=== PATIENT | female | born 1960 | race Caucasian/White ===

== ENCOUNTER 2016-07-12 18:58 | Emergency (ER) | payer OTHER ==
--- NOTE | 2016-07-12 19:20 | ER Document Report ---
ED Medical Screen (RME) - General Stated Complaint: ABDOMINAL PAIN Notes: 55 yo female c/o acute onset lower abdominal pain. pt had colonoscopy done today by Dr Dolan in his office. no vomiting. no fever. + hx/o colitis and bowel spasms TRAVEL OUTSIDE OF THE [place] IN LAST 30 DAYS: No - Related Data Allergies/Adverse Reactions: No Known Allergies Allergy (Unverified 06/01/11 10:56) Past Medical History Neurological Medical History: Reports: Hx Migraine Past Surgical History: Reports: Hx Appendectomy, Hx Orthopedic Surgery - right foot, Hx Tonsillectomy, Hx Tubal Ligation. Denies: Hx Pacemaker - Immunizations Hx Diphtheria, Pertussis, Tetanus Vaccination: Yes
[2016-07-12 19:54] LABS: ABSOLUTE BASOPHILS # (AUTO) 0.1 10^3/uL (0.0-0.2); ABSOLUTE EOSINOPHILS # (AUTO) 0.3 10^3/uL (0.0-0.6); ABSOLUTE LYMPHOCYTES (AUTO) 2.2 10^3/uL (0.5-4.7); ABSOLUTE MONOCYTES (AUTO) 0.5 10^3/uL (0.1-1.4); ABSOLUTE NEUT (AUTO) 3.6 10^3/uL (1.7-8.2); EOSINOPHILS % (AUTO) 4.2 % (0-6); HEMATOCRIT 46.5 % (36.0-47.0); HEMOGLOBIN 14.7 g/dL (12.0-15.5); HGB HCT DIFFERENCE -2.4; LYMPHOCYTES % (AUTO) 33.1 % (13-45); MEAN CORPUSCULAR HEMOGLOBIN 28.9 pg (27.0-33.4); MEAN CORPUSCULAR HGB CONC 31.6 g/dL (32.0-36.0); MEAN CORPUSCULAR VOLUME 91 fl (80-97); MONOCYTES % (AUTO) 6.8 % (3-13); RED BLOOD COUNT 5.09 10^6/uL (3.72-5.28); RED CELL DISTRIBUTION WIDTH 14.3 % (11.5-14.0); SEGMENTED NEUTROPHILS % (AUTO) 54.9 % (42-78); WHITE BLOOD COUNT 6.6 10^3/uL (4.0-10.5)
[2016-07-12 20:09] LABS: ALANINE AMINOTRANSFERASE 20 U/L (9-52); ALBUMIN 4.5 g/dL (3.5-5.0); ALKALINE PHOSPHATASE 57 U/L (38-126); ANION GAP 9 (5-19); ASPARTATE AMINO TRANSFERASE 33 U/L (14-36); BLOOD UREA NITROGEN 11 mg/dL (7-20); CALCIUM 9.7 mg/dL (8.4-10.2); CARBON DIOXIDE 29 mmol/L (22-30); CHLORIDE 103 mmol/L (98-107); CREATININE RESULT 0.66 mg/dL (0.52-1.25); GLUCOSE 79 mg/dL (75-110); LIPASE 60.1 U/L (23-300); POTASSIUM 3.8 mmol/L (3.6-5.0); SODIUM 141.2 mmol/L (137-145); TOTAL PROTEIN 8.2 g/dL (6.3-8.2)
--- NOTE | 2016-07-12 20:15 | ER Document Report ---
ED GI/ - General Mode of Arrival: Ambulatory Information source: Patient, Relative - Partner TRAVEL OUTSIDE OF THE [place] IN LAST 30 DAYS: No - HPI Patient complains to provider of: Abdominal pain Onset: This afternoon Timing/Duration: Sudden, Persistent Location: LLQ, RLQ, Suprapubic Exacerbated by: Walking <CRISTIAN SINGH - Last Filed: 07/12/16 23:19> <KOBE CHAVARRIA - Last Filed: 07/13/16 00:17> <ALLYSSA GUNN - Last Filed: 07/13/16 02:25> - General Chief Complaint: Abdominal Pain Stated Complaint: ABDOMINAL PAIN Notes: Patient is a 55-year-old female with history of ulcerative colitis presenting to the emergency department after having a colonoscopy today with with complaints of severe lower abdominal pain. Patient states it feels like the pain stems from her lower intestine. Patient's partner states that today during her colonoscopy later moved to follow-ups and told her that she had diverticulitis, but she was not prescribed any medication. Patient denies eating any Nusser seeds, and also states that she has never been given any guidance on a proper diet for ulcerative colitis. Patient received this colonoscopy due to frequent abdominal pain and sudden rapid weight loss. ( CRISTIAN SINGH) - Related Data Allergies/Adverse Reactions: No Known Allergies Allergy (Verified 07/12/16 19:32) Past Medical History - General Information source: Patient, Relative - Social History Smoking Status: Current Every Day Smoker Chew tobacco use (# tins/day): No Frequency of alcohol use: None Drug Abuse: None Family History: Reviewed & Not Pertinent Patient has suicidal ideation: No Patient has homicidal ideation: No Neurological Medical History: Reports: Hx Migraine Renal/ Medical History: Denies: Hx Peritoneal Dialysis GI Medical History: Reports: Hx Ulcerative Colitis, Hx Colonoscopy - 07/12/2016 Past Surgical History: Reports: Hx Appendectomy, Hx Orthopedic Surgery - right foot, Hx Tonsillectomy, Hx Tubal Ligation. Denies: Hx Pacemaker - Immunizations Hx Diphtheria, Pertussis, Tetanus Vaccination: Yes <CRISTIAN SINGH - Last Filed: 07/12/16 23:19> Review of Systems - Review of Systems Constitutional: No symptoms reported EENT: No symptoms reported Cardiovascular: No symptoms reported Respiratory: No symptoms reported Gastrointestinal: See HPI, Abdominal pain - Severe lower abdominal pain. Genitourinary: No symptoms reported Female Genitourinary: No symptoms reported Musculoskeletal: No symptoms reported Skin: No symptoms reported Hematologic/Lymphatic: No symptoms reported Neurological/Psychological: No symptoms reported -: Yes All other systems reviewed and negative <REINIER SINGHICA - Last Filed: 07/12/16 23:19> Physical Exam - General General appearance: Alert, Other - Appears uncomfortable - HEENT Head: Normocephalic, Atraumatic Eyes: Normal Pupils: PERRL - Respiratory Respiratory status: No respiratory distress Chest status: Nontender Breath sounds: Normal Chest palpation: Normal - Cardiovascular Rhythm: Regular Heart sounds: Normal auscultation Murmur: No - Abdominal Bowel sounds: Normal Tenderness: Tender - No pain in RUQ, Epigastric, LUQ. Tenderness to RLQ, suprapubic, LLQ with guarding. No rebounding or rigidity., Guarding. No: Rebound - Back Back: Normal, Nontender - Extremities General upper extremity: Normal inspection General lower extremity: Normal inspection - Neurological Neuro grossly intact: Yes Cognition: Normal Latonya Coma Scale Eye Opening: Spontaneous Latonya Coma Scale Verbal: Oriented Latonya Coma Scale Motor: Obeys Commands Latonya Coma Scale Total: 15 Speech: Normal - Psychological Associated symptoms: Normal affect, Normal mood - Skin Skin Temperature: Warm Skin Moisture: Dry Skin Color: Normal <REINIER SINGHICA - Last Filed: 07/12/16 23:19> Course - Laboratory Result Diagrams: 07/12/16 19:40 07/12/16 19:40 <MALATHI SINGHSSICA - Last Filed: 07/12/16 23:19> - Laboratory Result Diagrams: 07/12/16 19:40 07/12/16 19:40 <KOBE CHAVARRIA - Last Filed: 07/13/16 00:17> - Laboratory Result Diagrams: 07/12/16 19:40 07/12/16 19:40 <ALLYSSA GUNN - Last Filed: 07/13/16 02:25> - Re-evaluation Re-evalutation: 07/12/16 22:04 I personally performed the services described in the documentation, reviewed and edited the documentation which was dictated to my scribe in my presence, and it accurately records my words and actions. Patient presents emergency Department with acute lower abdominal pain. Patient had a colonoscopy done at Dr. short this morning. 07/12/16 23:52 Patient presents to the emergency department the chief complaint of lower abdominal pain patient states she was in the GI doctor's office today and had a colonoscopy done. She states about 2 hours prior to arrival she started having severe lower abdominal pain. She has a history of colitis but is never had pain like this is a history of appendectomy. She states that the GI doctor told her that she had some polyps which were removed no tumors or cancer. There is no record in the system I attempted to call the GI doctor multiple times with no response I attempted to call his partner multiple times with no response. Pending physician is Dr. MICHAEL VILLEDA. Patient underwent acute abdominal series which was negative and then a CT of the abdomen and pelvis with IV contrast read by the radiologist as if concerned about perforation surgical consultation but they don't see any free air psych consult to Dr. rivas who read the CAT scan and said he doesn't see any free air but didn't oral and rectal contrast. Patient has been updated informed of such severe abdominal examinations pain is controlled fentanyl no peritoneal signs rebound rigidity. 07/12/16 23:58 Call the extrusion technician to order oral and rectal contrast per surgery. Spoke with Dr. Gunn was given a follow-up on the CT scan with the surgeon. (KOBE CHAVARRIA) 07/13/16 02:[address] scan was negative. I did reevaluate the patient and she is feeling improved. I did re-palpate her abdomen. Her abdomen is soft. Still has some tenderness over the left lower quadrant but it is not severe. I informed her that she is followed closely with her GI physician. I encourage her return to ER if she has worsening pain, fevers, or vomiting. Patient agrees with plan and will be discharged home. Dictation of this chart was performed using voice recognition software; therefore, there may be some unintended grammatical errors. (ALLYSSA GUNN) - Vital Signs Vital signs: Temp Pulse Resp BP Pulse Ox 97.4 F 73 17 134/75 H 100 07/12/16 19:19 07/12/16 19:19 07/12/16 20:00 07/12/16 19:19 07/12/16 19:19 (CRISTIAN SINGH) (KOBE CHAVARRIA) (ALLYSSA GUNN) - Laboratory Laboratory results interpreted by me: 07/12/16 19:40 MCHC 31.6 L RDW 14.3 H (CRISTIAN SINGH) (KOBE CHAVARRIA) (ALLYSSA GUNN) - EKG Interpretation by Me Additional EKG results interpreted by me: 07/13/16 00:17 EKG interpreted by myself to reveal sinus rhythm at [address]-T wave changes no acute ST segment elevation or depression (KOBE CHAVARRIA) Discharge <CRISTIAN SINGH - Last Filed: 07/12/16 23:19> <KOBE CHAVARRIA - Last Filed: 07/13/16 00:17> <ALLYSSA GUNN - Last Filed: 07/13/16 02:25> - Discharge Clinical Impression: Abdominal pain Qualifiers: Abdominal location: unspecified location Qualified Code(s): R10.9 - Unspecified abdominal pain Condition: Stable Disposition: HOME, SELF-CARE Instructions: Abdominal Pain ([facility]) Referrals: PREETI STRONG MD [Primary Care Provider] - Follow up as needed SHAY OROURKE MD [NO LOCAL MD] - Follow up tomorrow (Return to the emergency department sooner for increasing worsening or new symptoms) Scribe Documentation - Scribe Written by Scribe:: Cristian Singh 07/12/20162014 acting as scribe for :: Micah <CRISTIAN SINGH - Last Filed: 07/12/16 23:19>
[2016-07-12] MEDS ORDERED: FENTANYL CITRATE INJ/PF 100 MCG/2 ML AMPUL ONE (20:20)
[2016-07-12] MEDS ORDERED: FENTANYL CITRATE INJ/PF 100 MCG/2 ML AMPUL IV ONE ×2 (20:20→23:17)
[2016-07-12] MEDS ORDERED: ONDANSETRON HCL INJ/PF 4 MG/2 ML SDV ONE (20:21)
--- NOTE | 2016-07-12 21:46 | EKG REPORT ---
SEVERITY:- ABNORMAL ECG - SINUS RHYTHM NONSPECIFIC T ABNORMALITIES, ANT-LAT LEADS : Confirmed by: Shayy Corey MD 12-Jul-2016 21:44:56
[2016-07-13 02:48] VITALS: BP 113/70
== END 2016-07-13 02:40 | disposition home or self-care (01) ==
LOC: ER 18:58
DX: R10.30 Lower abdominal pain, unspecified (principal); Z98.890 Other specified postprocedural states; R63.4 Abnormal weight loss; Z68.26 Body mass index [BMI] 26.0-26.9, adult; F17.200 Nicotine dependence, unspecified, uncomplicated; Z90.49 Acquired absence of other specified parts of digestive tract; Z87.19 Personal history of other diseases of the digestive system
CPT/HCPCS: 93005; 99285; 96374; 96375; 36415; 83690; 85025; 80053; 74022; 74176; 74177; 93010; J3010; J2405

== ENCOUNTER → 2016-09-29 | Outpatient (CLI) | payer OTHER ==
[2016-09-29 10:15] LABS: CHOLESTEROL 183.67 mg/dL (0-200); Direct HDL 59 mg/dL (>40); TRIGLYCERIDES 70 mg/dL (<150)
[2016-09-29 10:27] LABS: DIRECT LDL 99 mg/dL (<100)
== END ==
LOC: LAB 09:29
PROVIDERS: ATTEND Family Medicine
DX: E03.9 Hypothyroidism, unspecified (principal); Z79.899 Other long term (current) drug therapy
CPT/HCPCS: 36415; 80061; 83036; 84443

== ENCOUNTER → 2016-10-20 | Outpatient (CLI) | payer OTHER | LOC: WI 12:43 | PROVIDERS: ATTEND Family Medicine | DX: Z12.31 Encounter for screening mammogram for malignant neoplasm of breast (principal) | CPT/HCPCS: 77067; G0202 ==

== ENCOUNTER → 2016-12-12 | Outpatient (CLI) | payer OTHER | LOC: LAB 09:37 | PROVIDERS: ATTEND Family Medicine | DX: E03.9 Hypothyroidism, unspecified (principal) | CPT/HCPCS: 36415; 84436; 84443 ==

== ENCOUNTER → 2017-10-25 | Outpatient (CLI) | payer OTHER ==
--- NOTE | 2017-10-25 14:07 | WOMENS IMAGING REPORT ---
EXAM DESCRIPTION: BILAT SCREENING MAMMO W/CAD COMPLETED DATE/TIME: 10/25/2017 1:48 pm REASON FOR STUDY: SCREENING MAMMO Z12.31 ENCNTR SCREEN MAMMOGRAM FOR MALIGNANT NEOPLASM OF MARIE COMPARISON: 2016 TECHNIQUE: Standard craniocaudal and mediolateral oblique views of each breast recorded using digita l acquisition. LIMITATIONS: None. FINDINGS: No masses, calcifications or architectural distortion. No areas of suspicion. Read with the assistance of CAD. .[facility] - R2 Cenova Version 1.3 .[facility] - R2 Cenova Version 1.3 .[facility] - R2 Cenova Version 2.4 .[facility] - R2 Cenova Version 2.4 .[facility] - R2 Broth Mixer Version 9.2 IMPRESSION: NORMAL MAMMOGRAM. BIRADS 1. BREAST DENSITY: d. The breasts are extremely dense, which lowers the sensitivity of mammography. BIRAD: 1 NEGATIVE RECOMMENDATION: ROUTINE SCREENING COMMENT: The patient has been notified of the results by letter per SA requirements. Additional no tification policies are in place for contacting patient with suspicious or incomplete findings. Quality ID #[id number]: The [employer] recommends an annual screening mammogram for women aged 40 years or over. This facility utilizes a reminder system to ensure that all patients receive reminder letters, and/or direct phone calls for appointments. This includes reminders for routine scr eening mammograms, diagnostic mammograms, or other Breast Imaging Interventions when appropriate. Th is patient will be placed in the appropriate reminder system. The [employer] (ACR) has developed recommendations for screening MRI of the breast s in certain patient populations, to be used in conjunction with mammography. Breast MRI surveillanc e may be appropriate for women with more than 20% lifetime risk of developing breast cancer as deter mined by genetic testing, significant family history of the disease, or history of mantle radiation f or Hodgkins Disease. ACR Practice Guidelines 2008. TECHNICAL DOCUMENTATION: FINDING NUMBER: (1) ASSESSMENT: (1) JOB ID: [id number] [employer]- All Rights Reserved Reading location - IP/workstation name: [facility]
== END ==
LOC: WI 13:30
PROVIDERS: ATTEND Family Medicine
DX: Z12.31 Encounter for screening mammogram for malignant neoplasm of breast (principal)
CPT/HCPCS: 77067

== ENCOUNTER → 2017-11-02 | Outpatient (CLI) | payer OTHER ==
[2017-11-02 13:17] LABS: ANION GAP 6 (5-19); BLOOD UREA NITROGEN 12 mg/dL (7-20); CALCIUM 9.9 mg/dL (8.4-10.2); CARBON DIOXIDE 35 mmol/L (22-30); CHLORIDE 105 mmol/L (98-107); CHOLESTEROL 140.09 mg/dL (0-200); GLUCOSE 90 mg/dL (75-110); POTASSIUM 4.6 mmol/L (3.6-5.0); TRIGLYCERIDES 94 mg/dL (<150)
[2017-11-02 13:28] LABS: DIRECT LDL 74 mg/dL (<100)
[2017-11-02 16:53] LABS: URINE AMPHETAMINES SCREEN NEGATIVE; URINE BARBITURATES SCREEN NEGATIVE; URINE BENZODIAZEPINES SCREEN NEGATIVE; URINE COCAINE SCREEN NEGATIVE; URINE MARIJUANA (THC) SCREEN NEGATIVE; URINE METHADONE SCREEN NEGATIVE; URINE PHENCYCLIDINE SCREEN NEGATIVE
== END ==
LOC: LAB 12:14
PROVIDERS: ATTEND Family Medicine
DX: E03.9 Hypothyroidism, unspecified (principal); Z79.899 Other long term (current) drug therapy
CPT/HCPCS: 36415; 80048; 80061; 80307; 83036; 84436; 84443

== ENCOUNTER 2018-10-02 22:59 | Emergency (ER) | payer OTHER ==
[2018-10-03 00:02] VITALS: BP 132/67
--- NOTE | 2018-10-03 02:39 | RADIOLOGY REPORT (SQ) ---
EXAM DESCRIPTION: XR WRIST 3 OR MORE VIEWS BILATERAL COMPLETED DATE/TME: 10/03/2018 00:00 CLINICAL HISTORY: 58 years, Female, fall COMPARISON: None. NUMBER OF VIEWS: 3 TECHNIQUE: 3 view right wrist LIMITATIONS: None. FINDINGS: Subtle lucency of the distal radial metaphysis likely reflects nondisplaced distal radial fracture. There is associated soft tissue swelling. No dislocation. Degenerative changes throughout the hand. IMPRESSION: Subtle lucency suspicious for nondisplaced distal radial metaphyseal fracture. copyright 2010 [employer]- All Rights Reserved
[2018-10-03] MEDS ORDERED: ACETAMINOPHEN 325 MG TABLET PO ONE (02:50)
[2018-10-03] MEDS ORDERED: ONDANSETRON 4 MG TAB.RAPDIS PO ONE (03:21)
[2018-10-03] MEDS ORDERED: MORPHINE SULFATE 10 MG/ML INJ IM ONE (03:21)
--- NOTE | 2018-10-03 03:58 | ER Document Report ---
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 Patient states that she went to step up onto a curve when she caught her foot causing her to fall backwards with her hand outstretched. Patient denies head injury, loss of consciousness. She is currently in pain management and takes Vicodin. Patient denies any preceding chest pain, dizziness, shortness of breath. TRAVEL OUTSIDE OF THE [place] IN LAST 30 DAYS: No - HPI Onset: Just prior to arrival Onset/Duration: Sudden Quality of pain: Throbbing Severity: Moderate Associated symptoms: denies: Chest pain, Leg swelling, Nausea, Vomiting, Shortness of breath Exacerbated by: Movement Relieved by: Denies Similar symptoms previously: No Recently seen / treated by doctor: Yes - Related Data Allergies/Adverse Reactions: No Known Allergies Allergy (Verified 07/12/16 19:32) Past Medical History - General Information source: Patient, Friend, [facility] Records - Social History Smoking Status: Never Smoker Frequency of alcohol use: None Drug Abuse: None Lives with: Spouse/Significant other Family History: Reviewed & Not Pertinent Neurological Medical History: Reports: Hx Migraine Renal/ Medical History: Denies: Hx Peritoneal Dialysis GI Medical History: Reports: Hx Ulcerative Colitis, Hx Colonoscopy - 07/12/2016 Past Surgical History: Reports: Hx Appendectomy, Hx Orthopedic Surgery - right foot, Hx Tonsillectomy, Hx Tubal Ligation. Denies: Hx Pacemaker - Immunizations Hx Diphtheria, Pertussis, Tetanus Vaccination: Yes Review of Systems - Review of Systems Notes: REVIEW OF SYSTEMS: CONSTITUTIONAL : Denies fever, chills, or sweats. Denies recent illness. Denies weight loss, recent hospitalizations. EENT: Denies visual changes, eye pain. Denies sore throat, oral lesions, difficulty swallowing. CARDIOVASCULAR: Denies chest pain. Denies palpitations. Denies lower extremity edema. RESPIRATORY: Denies cough. Denies shortness of breath, wheezing. GASTROINTESTINAL: Denies abdominal pain or distention. Denies nausea, vomiting, or diarrhea. Denies blood in vomitus, stools, or per rectum. Denies black, tarry stools. Denies constipation. GENITOURINARY: Denies difficulty urinating, painful urination, frequency, blood in urine, or vaginal discharge. MUSCULOSKELETAL: Denies back or neck pain or stiffness. SKIN: Denies rash, lesions or sores. HEMATOLOGIC : Denies easy bruising or bleeding. LYMPHATIC: Denies swollen glands. NEUROLOGICAL: Denies confusion or altered mental status. Denies loss of consciousness. Denies dizziness or lightheadedness. Denies headache. Denies weakness or paralysis. Denies problems difficulty with ambulation, slurred speech. Denies sensory loss, numbness, or tingling. Denies seizures. PSYCHIATRIC: Denies anxiety or stress. Denies depression, suicidal ideation, or homicidal ideation. Denies visual or auditory hallucinations. Physical Exam - Vital signs Vitals: Temp Pulse Resp BP Pulse Ox 97.5 F 81 20 132/67 H 98 10/03/18 00:01 10/03/18 00:01 10/03/18 00:01 10/03/18 00:01 10/03/18 00:01 - Notes Notes: PHYSICAL EXAMINATION: GENERAL: Well-appearing, well-nourished and in no acute distress. HEAD: Atraumatic, normocephalic. EYES: Pupils equal round and reactive to light, extraocular movements intact, conjunctiva are normal. ENT: Nares patent, oropharynx clear without exudates. Moist mucous membranes. NECK: Normal range of motion, supple without lymphadenopathy LUNGS: Breath sounds clear to auscultation bilaterally and equal. No wheezes rales or rhonchi. HEART: Regular rate and rhythm without murmurs ABDOMEN: Soft, nontender, nondistended abdomen. No guarding, no rebound. No masses appreciated. Female : deferred Musculoskeletal: Limited range of motion of the left wrist secondary to pain. No pitting or edema. No cyanosis. Hand exam- Symmetrically palpable radial and ulnar pulses. Cap refill less than 2 seconds on all digits. Intact sensation to light touch of the radial, median and ulnar nerves demonstrated by testing in the dorsal webspace of the thumb the distal palmar aspect of the index finger and lateral surface of the fifth finger. Compartments soft. Two-point discrimination intact to 5 mm of discrimination in the affected digit. Intact motor function of the radial median and ulnar nerves demonstrated by strength of extension of the isolated distal joint of the index finger, hand baggagemaster, and spreading of the second through fifth digits. Intact recurrent median nerve as demonstrated by ability to move down fully through opposition, abduction and flexion. positive snuffbox tenderness, distal radius tenderness, right thumb tenderness without obvious deformity.. NEUROLOGICAL: Cranial nerves grossly intact. Normal speech, normal gait. Normal sensory, motor exams PSYCH: Normal mood, normal affect. SKIN: Warm, Dry, normal turgor, no rashes or lesions noted. Course - Re-evaluation Re-evalutation: 10/03/18 18:28 Wrist X-Ray 10/03/18 00:00 IMPRESSION: Subtle lucency suspicious for nondisplaced distal radial metaphyseal fracture. copyright 2010 [employer]- All Rights Reserved Hand X-Ray 10/03/18 03:20 IMPRESSION: Diffuse degenerative change as above copyright 2010 [employer]- All Rights Reserved Temp Pulse Resp BP Pulse Ox 97.5 F 79 16 132/67 H 97 10/03/18 00:01 10/03/18 04:27 10/03/18 04:27 10/03/18 00:01 10/03/18 04:27 58-year-old female with chronic pain, presents after a fall onto an outstretched hand. Vital signs reviewed and within normal limits. Patient does not appear toxic or dehydrated but does appear to be in significant pain. Exam is significant for tenderness along the distal forearm along the radius and scaphoid as well as the thumb. X-rays were obtained which shows a subtle lucent C of the distal radius. I do suspect that patient may have a scaphoid fracture which is not being seen on x-ray today. I did explain to the patient that this could take a week or 2 to show up on imaging. Patient has a relationship with [facility] so and states that she will follow-up with them. She was placed in a thumb spica splint and provided copies of her reports and imaging. Patient has home medications of Vicodin for which she uses for chronic pain. Patient was advised to ice, elevate and return with any significant swelling or pain. Patient was evaluated after splint placement and reports feeling more comfortable, sensation intact and cap refill less than 3 seconds. Patient was evaluated and treated as appropriate for the patient's presenting symptoms and complaint, with consideration of any critical or life threatening conditions that may be associated with their obtained history and exam as noted above. All results were discussed with patient and her partner who is at the bedside. Patient provided the opportunity to ask questions, and express concerns. Patient was educated on treatments based on their presumed diagnosis as noted above. At this time we will discharge the patient with return precautions and follow-up recommendations. Verbal discharge instructions given a the bedside. Medication warnings reviewed. Patient is in agreement with this plan and has verbalized understanding of return precautions. After careful consideration I feel that that patient can be safely discharged from the emergency department, they were advised to followup with a primary care physician in 2-3 days. Dictation on this chart was performed using voice recognition software and may result in unintended grammatical, spelling, syntax or errors. - Vital Signs Vital signs: Temp Pulse Resp BP Pulse Ox 97.5 F 79 16 132/67 H 97 10/03/18 00:01 10/03/18 04:27 10/03/18 04:27 10/03/18 00:01 10/03/18 04:27 - Diagnostic Test Radiology reviewed: Image reviewed, Reports reviewed Procedures - Joint Reduction/Fracture Care Right Wrist Time completed: 18:31 Consent obtained: No Conscious sedation: No Pre-procedure NV exam: Yes - Normal limits Fracture: Closed Post-procedure NV exam: Yes - Within normal limits Post-reduction x-ray: Joint not reduced Complications: No - Thumb spica splint placed Discharge - Discharge Clinical Impression: schaphoid tenderness Distal radius fracture, right Qualifiers: Encounter type: initial encounter Fracture type: closed Fracture morphology: unspecified fracture morphology Qualified Code(s): S52.501A - Unspecified fracture of the lower end of right radius, initial encounter for closed fracture Fall Qualifiers: Encounter type: initial encounter Qualified Code(s): W19.XXXA - Unspecified fall, initial encounter Condition: Good Disposition: HOME, SELF-CARE Instructions: Fractured Radius ([facility]), Possible Hidden Navicular Fracture ([facility]) Forms: Elevated Blood Pressure Referrals: PREETI STRONG MD [Primary Care Provider] - Follow up as needed SUJEY KINCAID MD [ACTIVE STAFF] - Follow up as needed
--- NOTE | 2018-10-03 04:02 | RADIOLOGY REPORT (SQ) ---
EXAM DESCRIPTION: XR HAND 3 OR MORE VIEWS COMPLETED DATE/TME: 10/03/2018 03:20 CLINICAL HISTORY: 58 years, Female, thumb tenderness COMPARISON: None. NUMBER OF VIEWS: 3 TECHNIQUE: 3 view right hand LIMITATIONS: None. FINDINGS: Negative for acute fracture or dislocation. Degenerative changes throughout the hand with joint space narrowing and bony spur formation involving the DIP joints of all the digits as well as of the first CMC joint. Soft tissues are unremarkable IMPRESSION: Diffuse degenerative change as above copyright 2010 [employer]- All Rights Reserved
== END 2018-10-03 04:25 | disposition home or self-care (01) ==
LOC: ER 22:59
DX: S52.501A Unspecified fracture of the lower end of right radius, initial encounter for closed fracture (principal); S49.91XA Unspecified injury of right shoulder and upper arm, initial encounter; W19.XXXA Unspecified fall, initial encounter; Y99.0 Civilian activity done for income or pay
CPT/HCPCS: 29125; 99283; 96372; 73130; 73110; S0119; J2270

== ENCOUNTER → 2018-11-14 | Outpatient (CLI) | payer OTHER ==
[2018-11-14 10:48] LABS: ANION GAP 7 (5-19); BLOOD UREA NITROGEN 10 mg/dL (7-20); CALCIUM 9.6 mg/dL (8.4-10.2); CARBON DIOXIDE 31 mmol/L (22-30); CHLORIDE 104 mmol/L (98-107); CHOLESTEROL 117.63 mg/dL (0-200); GLUCOSE 83 mg/dL (75-110); POTASSIUM 4.6 mmol/L (3.6-5.0); SODIUM 142.4 mmol/L (137-145); TRIGLYCERIDES 88 mg/dL (<150)
[2018-11-14 10:59] LABS: DIRECT LDL 65 mg/dL (<100)
[2018-11-14 11:07] LABS: URINE AMPHETAMINES SCREEN NEGATIVE; URINE BARBITURATES SCREEN NEGATIVE; URINE BENZODIAZEPINES SCREEN NEGATIVE; URINE COCAINE SCREEN NEGATIVE; URINE METHADONE SCREEN NEGATIVE; URINE PHENCYCLIDINE SCREEN NEGATIVE
[2018-11-14 11:53] LABS: URINE MARIJUANA (THC) SCREEN UNCONFIRMED POSITIVE
== END ==
LOC: LAB 09:53
PROVIDERS: ATTEND Family Medicine
DX: E03.9 Hypothyroidism, unspecified (principal); M54.5 Low back pain; Z79.899 Other long term (current) drug therapy; G89.4 Chronic pain syndrome; M65.28 Calcific tendinitis, other site
CPT/HCPCS: 36415; 84443; 80048; 80307; 83036; 84436; 80061; G0480 ×2; 80349

== ENCOUNTER → 2019-06-05 | Outpatient (CLI) | payer OTHER ==
--- NOTE | 2019-06-05 16:36 | RADIOLOGY REPORT (SQ) ---
EXAM DESCRIPTION: CHEST 2 VIEWS COMPLETED DATE/TIME: 06/05/2019 3:04 pm REASON FOR STUDY: SHORTNESS OF BREATH COMPARISON: None. EXAM PARAMETERS: NUMBER OF VIEWS: two views TECHNIQUE: Digital Frontal and Lateral radiographic views of the chest acquired. RADIATION DOSE: NA LIMITATIONS: none FINDINGS: LUNGS AND PLEURA: Lungs are hyperinflated and hyperlucent from obstructive disease. No acute infiltrates. No pleural effusion. No pneumothorax. MEDIASTINUM AND HILAR STRUCTURES: No masses or contour abnormalities. HEART AND VASCULAR STRUCTURES: Heart normal size. No evidence for failure. BONES: No acute findings. HARDWARE: None in the chest. OTHER: No other significant finding. IMPRESSION: Obstructive lung disease. No focal findings. TECHNICAL DOCUMENTATION: JOB ID: [id number] [employer]- All Rights Reserved Reading location - IP/workstation name: [facility]
== END ==
LOC: RAD 14:43
PROVIDERS: ATTEND Family Medicine
DX: J44.9 Chronic obstructive pulmonary disease, unspecified (principal); R05 Cough; R09.89 Other specified symptoms and signs involving the circulatory and respiratory systems; R06.02 Shortness of breath
CPT/HCPCS: 71046

== ENCOUNTER → 2019-12-09 | Outpatient (CLI) | payer BC ==
[2019-12-09 15:36] LABS: ANION GAP 6 (5-19); BLOOD UREA NITROGEN 14 mg/dL (7-20); CALCIUM 9.5 mg/dL (8.4-10.2); CARBON DIOXIDE 28 mmol/L (22-30); CHLORIDE 100 mmol/L (98-107); CHOLESTEROL 174.44 mg/dL (0-200); GLUCOSE 106 mg/dL (75-110); POTASSIUM 4.3 mmol/L (3.6-5.0); TRIGLYCERIDES 100 mg/dL (<150)
[2019-12-09 15:47] LABS: DIRECT LDL 93 mg/dL (<100)
[2019-12-09 16:01] LABS: URINE AMPHETAMINES SCREEN NEGATIVE; URINE BARBITURATES SCREEN NEGATIVE; URINE BENZODIAZEPINES SCREEN NEGATIVE; URINE COCAINE SCREEN NEGATIVE; URINE MARIJUANA (THC) SCREEN NEGATIVE; URINE METHADONE SCREEN NEGATIVE; URINE PHENCYCLIDINE SCREEN NEGATIVE
== END ==
LOC: OD 14:20
PROVIDERS: ATTEND Family Medicine
DX: E03.9 Hypothyroidism, unspecified (principal); M54.5 Low back pain; G89.4 Chronic pain syndrome; M65.28 Calcific tendinitis, other site; Z79.899 Other long term (current) drug therapy
CPT/HCPCS: 80361; 36415; 84443; 80048; 80307; 83036; 84436; 80061; G0480 ×2; 80365